=== PATIENT | male | born 1960 | race Asian ===

== ENCOUNTER 2020-02-12 14:57 | Inpatient (IN) | payer OTHER ==
[~2020-02-12] VITALS: Ht 175.3 cm; Wt 78.2 kg
[~2020-02-12 14:57] MED LIST: AMLO-257 PO; CLOP75TA3 PO; SIMV-261 PO; TELM40 PO
[2020-02-12] MEDS ORDERED: HYDR500 PO (15:08)
[2020-02-12] MEDS ORDERED: SIMV-259 PO (15:08)
[2020-02-12] MEDS ORDERED: METF-960 PO (15:08)
[2020-02-12] MEDS ORDERED: ACETAMINOPHEN 325 MG TABLET PO ONE (16:15)
[2020-02-12 17:10] LABS: EOSINOPHILS % (AUTO) 0.1 % (1.0-6.0); HEMOGLOBIN 13.2 g/dL (13.5-17.5); LYMPHOCYTES # (AUTO) 0.6 K/uL (1.0-4.8); MONOCYTES # (AUTO) 0.5 K/uL (0.1-1.0); NEUTROPHILS # (AUTO) 2.1 K/uL (1.8-7.7)
[2020-02-12 17:15] LABS: BASOPHILS % (AUTO) 0.4 % (0.0-2.0); HEMATOCRIT 40.3 % (41-53); LYMPHOCYTES % (AUTO) 19.2 % (22.0-44.0); MEAN CORPUSCULAR HEMOGLOBIN 34.5 pg (26.0-34.0); MEAN CORPUSCULAR HGB CONC 32.6 G/dL (31.0-37.0); MEAN CORPUSCULAR VOLUME 106 fL (80-100); MONOCYTES % (AUTO) 15.3 % (2.0-9.0); PLATELET COUNT (AUTO) 454 K/uL (150-450); RED BLOOD CELL COUNT(AUTO) 3.82 MIL/uL (4.50-5.90); RED CELL DISTRIBUTION WIDTH 12.8 % (11.5-14.5)
[2020-02-12 17:20] LABS: ANION GAP 6 mmol/L (8-16); CALCIUM, TOTAL 8.4 mg/dL (8.8-10.5); CARBON DIOXIDE 29 mmol/L (22-29); CHLORIDE 100 mmol/L (98-107); GLOMERULAR FILTR. RATE CALC > 60 mL/min (>60); GLUCOSE,RANDOM 113 mg/dL (70-110); POTASSIUM 4.2 mmol/L (3.5-5.1); SODIUM SERUM 135 mmol/L (136-145); UREA NITROGEN, BLOOD 10 mg/dL (7-18)
[2020-02-12 17:25] LABS: ALANINE AMINOTRANSFERASE 35 U/L (12-78); ALBUMIN 3.8 g/dL (3.4-5.0); ALKALINE PHOSPHATASE 51 U/L (46-116); ASPARTATE AMINOTRANSFERASE 27 U/L (15-37); BILIRUBIN,TOTAL 0.5 mg/dL (0.1-1.0); TOTAL PROTEIN, SERUM 8.1 g/dL (6.4-8.2)
[2020-02-12 17:43] LABS: B-TYPE NATRIURETIC PEPTIDE < 5 pg/mL (0-100)
[2020-02-12] MEDS ORDERED: IBUPROFEN 400 MG TABLET PO ONE (18:15)
[2020-02-12] MEDS ORDERED: ACETAMINOPHEN 325 MG TABLET PO PRN (19:00)
[2020-02-12] MEDS ORDERED: 0.9% SODIUM CHLORIDE 10 ML SYRINGE IVP PRN (19:00)
[2020-02-12] MEDS ORDERED: AZITHROMYCIN 500 MG TABLET PO ONE (19:00)
[2020-02-12] MEDS ORDERED: ONDANSETRON HCL 4 MG/2 ML VIAL IVP PRN ×2 (19:00→22:00)
[2020-02-12] MEDS ORDERED: CefTRIAXone 1 GM/DEXTROSE 50 ML IV ONE (19:00)
[2020-02-12] MEDS ORDERED: MAGNESIUM HYDROXIDE SUSPENSION 30 ML UDCUP PO PRN (22:00)
[2020-02-12] MEDS ORDERED: AZITHROMYCIN 500 MG/NS 250 ML IV SCH (22:00)
[2020-02-12] MEDS ORDERED: BISACODYL 10 MG RECTAL RECTAL SUPPOSITORY PR PRN (22:00)
[2020-02-12] MEDS ORDERED: DEXTROSE 50%-WATER 25 GM/50 ML SYRINGE IVP PRN (22:15)
[2020-02-12] MEDS ORDERED: INSULIN LISPRO 100 UNITS/ML SQ PRN (22:15)
[2020-02-12] MEDS ORDERED: REMDESIVIR **INVESTIGATIONAL** 200 MG in SODIUM CHLORIDE 0.9% 210 ML IV ONE (23:00)
[2020-02-13 00:05] VITALS: BP 129/73
[2020-02-13] MEDS ORDERED: SODIUM CHLORIDE 0.9% 100 ML ONE (00:06)
[2020-02-13 00:10] LABS: C-REACTIVE PROTEIN QUANT 2.26 mg/dL (0.00-0.30); FERRITIN 793 ng/mL (26-388)
[2020-02-13 03:07] LABS: APPEARANCE,URINE CLEAR (CLEAR); BILIRUBIN,URINE NEGATIVE (NEGATIVE); GLUCOSE, URINE (UA) NEGATIVE (NEGATIVE); KETONES,URINE NEGATIVE (NEGATIVE); LEUKOCYTE ESTERASE ,URINE NEGATIVE (NEGATIVE); NITRATE,URINE NEGATIVE (NEGATIVE); OCCULT BLOOD,URINE NEGATIVE (NEGATIVE); PROTEIN,URINE POS 1+ (NEGATIVE); UROBILINOGEN,URINE 0.2 mg/dL (<=1.0)
[2020-02-13 05:05] VITALS: BP 125/70
[2020-02-13 07:06] LABS: BASOPHILS % (AUTO) 0.4 % (0.0-2.0); EOSINOPHILS % (AUTO) 0.1 % (1.0-6.0); HEMATOCRIT 36.3 % (41-53); HEMOGLOBIN 12.4 g/dL (13.5-17.5); LYMPHOCYTES # (AUTO) 0.5 K/uL (1.0-4.8); LYMPHOCYTES % (AUTO) 18.5 % (22.0-44.0); MEAN CORPUSCULAR HEMOGLOBIN 35.8 pg (26.0-34.0); MEAN CORPUSCULAR HGB CONC 34.2 G/dL (31.0-37.0); MEAN CORPUSCULAR VOLUME 105 fL (80-100); MONOCYTES # (AUTO) 0.3 K/uL (0.1-1.0); PLATELET COUNT (AUTO) 433 K/uL (150-450); RED BLOOD CELL COUNT(AUTO) 3.46 MIL/uL (4.50-5.90); RED CELL DISTRIBUTION WIDTH 12.8 % (11.5-14.5)
[2020-02-13 07:48] LABS: GLUCOMETER DEV NAME(LOC) 5S.1; GLUCOSE,POINT OF CARE 128 MG/DL (70-110)
[2020-02-13 07:58] LABS: ALANINE AMINOTRANSFERASE 32 U/L (12-78); ALBUMIN 3.4 g/dL (3.4-5.0); ALKALINE PHOSPHATASE 52 U/L (46-116); ANION GAP 12 mmol/L (8-16); ASPARTATE AMINOTRANSFERASE 26 U/L (15-37); BILIRUBIN,TOTAL 0.3 mg/dL (0.1-1.0); C-REACTIVE PROTEIN QUANT 2.76 mg/dL (0.00-0.30); CALCIUM, TOTAL 8.1 mg/dL (8.8-10.5); CARBON DIOXIDE 25 mmol/L (22-29); CHLORIDE 99 mmol/L (98-107); CHOL/HDL RATIO 3.1 (4.2-7.3); CHOLESTEROL 100 mg/dL (131-200); CREATINE KINASE, TOTAL ONLY 206 U/L (39-308); CREATININE 0.94 mg/dL (0.60-1.30); FERRITIN 730 ng/mL (26-388); FREE T4 (FREE THYROXINE) 0.87 ng/dL (0.76-1.46); GLOMERULAR FILTR. RATE CALC > 60 mL/min (>60); GLUCOSE,RANDOM 124 mg/dL (70-110); HDL CHOLESTEROL 32 mg/dL (40-60); LACTATE DEHYDROGENASE 233 U/L (85-227); LDL CHOL (CALC.) 57 mg/dL (0-130); POTASSIUM 3.9 mmol/L (3.5-5.1); SODIUM SERUM 136 mmol/L (136-145); THYROID STIMULATING HORMONE 3.08 uIU/mL (0.36-3.74); TOTAL PROTEIN, SERUM 7.5 g/dL (6.4-8.2); TRIGLYCERIDES 55 mg/dL (15-150); UREA NITROGEN, BLOOD 12 mg/dL (7-18)
[2020-02-13 08:15] LABS: HEMOGLOBIN A1C 6.1 % (3.8-5.6)
[2020-02-13 08:30] VITALS: BP 149/81
[2020-02-13] MEDS: TELMISARTAN 40 MG TABLET PO SCH (08:30)
[2020-02-13] MEDS: CLOPIDOGREL BISULFATE 75 MG TABLET PO SCH (08:30)
[2020-02-13] MEDS: MetFORMIN HCL 500 MG TABLET PO SCH (08:30)
[2020-02-13] MEDS: ACETAMINOPHEN 325 MG TABLET PO PRN ×3 (08:30→21:51)
[2020-02-13] MEDS: HYDROXYUREA 500 MG CAPSULE PO SCH (08:30)
[2020-02-13] MEDS ORDERED: HYDROXYUREA 500 MG CAPSULE PO SCH (09:00)
[2020-02-13] MEDS ORDERED: TELMISARTAN 40 MG TABLET PO SCH (09:00)
[2020-02-13 11:20] VITALS: BP 129/68
[2020-02-13 15:07] VITALS: BP 151/72
[2020-02-13] MEDS ORDERED: DEXAMETHASONE SOD PHOS 4 MG/ML VIAL IVP SCH (17:00)
[2020-02-13 19:48] VITALS: BP 131/78
[2020-02-13] MEDS: SIMVASTATIN 40 MG TABLET PO SCH (20:26)
[2020-02-13] MEDS: CefTRIAXone 1 GM/DEXTROSE 50 ML IV SCH (20:26)
[2020-02-13] MEDS ORDERED: SIMVASTATIN 40 MG TABLET PO SCH (21:00)
[2020-02-13] MEDS: AZITHROMYCIN 500 MG/NS 250 ML IV SCH (21:51)
[2020-02-13] MEDS: REMDESIVIR **INVESTIGATIONAL** 100 MG in SODIUM CHLORIDE 0.9% 230 ML IV SCH (23:10)
[2020-02-14] VITALS (7 sets, daily range): BP systolic 111–138; BP diastolic 66–82
[2020-02-14] MEDS: ACETAMINOPHEN 325 MG TABLET PO PRN ×3 (05:55→21:38)
[2020-02-14 06:56] LABS: ALANINE AMINOTRANSFERASE 35 U/L (12-78); ALBUMIN 3.4 g/dL (3.4-5.0); ALKALINE PHOSPHATASE 48 U/L (46-116); ANION GAP 7 mmol/L (8-16); ASPARTATE AMINOTRANSFERASE 27 U/L (15-37); BILIRUBIN,TOTAL 0.4 mg/dL (0.1-1.0); CALCIUM, TOTAL 8.1 mg/dL (8.8-10.5); CARBON DIOXIDE 27 mmol/L (22-29); CHLORIDE 96 mmol/L (98-107); CREATININE 0.78 mg/dL (0.60-1.30); GLOMERULAR FILTR. RATE CALC > 60 mL/min (>60); GLUCOSE,RANDOM 120 mg/dL (70-110); POTASSIUM 3.8 mmol/L (3.5-5.1); SODIUM SERUM 130 mmol/L (136-145); TOTAL PROTEIN, SERUM 7.7 g/dL (6.4-8.2); UREA NITROGEN, BLOOD 11 mg/dL (7-18)
[2020-02-14 08:08] LABS: BASOPHILS % (AUTO) 0.4 % (0.0-2.0); EOSINOPHILS % (AUTO) 0.1 % (1.0-6.0); HEMATOCRIT 37.4 % (41-53); HEMOGLOBIN 12.9 g/dL (13.5-17.5); LYMPHOCYTES # (AUTO) 0.7 K/uL (1.0-4.8); LYMPHOCYTES % (AUTO) 22.4 % (22.0-44.0); MEAN CORPUSCULAR HEMOGLOBIN 35.9 pg (26.0-34.0); MEAN CORPUSCULAR HGB CONC 34.4 G/dL (31.0-37.0); MEAN CORPUSCULAR VOLUME 104 fL (80-100); MONOCYTES # (AUTO) 0.3 K/uL (0.1-1.0); MONOCYTES % (AUTO) 10.1 % (2.0-9.0); PLATELET COUNT (AUTO) 406 K/uL (150-450); RED BLOOD CELL COUNT(AUTO) 3.59 MIL/uL (4.50-5.90); RED CELL DISTRIBUTION WIDTH 12.8 % (11.5-14.5)
[2020-02-14] MEDS: MetFORMIN HCL 500 MG TABLET PO SCH (08:45)
[2020-02-14] MEDS: CLOPIDOGREL BISULFATE 75 MG TABLET PO SCH (08:45)
[2020-02-14] MEDS: HYDROXYUREA 500 MG CAPSULE PO SCH (08:45)
[2020-02-14] MEDS: TELMISARTAN 40 MG TABLET PO SCH (08:45)
[2020-02-14 14:29] LABS: C-REACTIVE PROTEIN QUANT 3.03 mg/dL (0.00-0.30); FERRITIN 953 ng/mL (26-388); LACTATE DEHYDROGENASE 477 U/L (85-227)
[2020-02-14 16:25] LABS: GLUCOMETER DEV NAME(LOC) 5N.3; GLUCOSE,POINT OF CARE 114 MG/DL (70-110)
[2020-02-14] MEDS: SIMVASTATIN 40 MG TABLET PO SCH (20:16)
[2020-02-14] MEDS: CefTRIAXone 1 GM/DEXTROSE 50 ML IV SCH (20:16)
[2020-02-14] MEDS: AZITHROMYCIN 500 MG/NS 250 ML IV SCH (21:37)
[2020-02-14 22:55] LABS: GLUCOMETER DEV NAME(LOC) 5S.1; GLUCOSE,POINT OF CARE 121 MG/DL (70-110)
[2020-02-14] MEDS: REMDESIVIR **INVESTIGATIONAL** 100 MG in SODIUM CHLORIDE 0.9% 230 ML IV SCH (23:13)
[2020-02-15 04:58] VITALS: BP 133/78
[2020-02-15 06:40] LABS: BASOPHILS % (AUTO) 0.4 % (0.0-2.0); EOSINOPHILS % (AUTO) 0.2 % (1.0-6.0); HEMATOCRIT 37.1 % (41-53); HEMOGLOBIN 12.9 g/dL (13.5-17.5); LYMPHOCYTES # (AUTO) 0.8 K/uL (1.0-4.8); LYMPHOCYTES % (AUTO) 22.8 % (22.0-44.0); MEAN CORPUSCULAR HGB CONC 34.8 G/dL (31.0-37.0); MEAN CORPUSCULAR VOLUME 103 fL (80-100); MONOCYTES # (AUTO) 0.5 K/uL (0.1-1.0); MONOCYTES % (AUTO) 13.9 % (2.0-9.0); NEUTROPHILS # (AUTO) 2.2 K/uL (1.8-7.7); NEUTROPHILS % (AUTO) 62.7 % (40.0-70.0); PLATELET COUNT (AUTO) 401 K/uL (150-450); RED BLOOD CELL COUNT(AUTO) 3.59 MIL/uL (4.50-5.90); RED CELL DISTRIBUTION WIDTH 12.7 % (11.5-14.5)
[2020-02-15 07:47] LABS: GLUCOMETER DEV NAME(LOC) 5N.1; GLUCOSE,POINT OF CARE 119 MG/DL (70-110)
[2020-02-15 07:49] LABS: ALANINE AMINOTRANSFERASE 31 U/L (12-78); ALBUMIN 3.3 g/dL (3.4-5.0); ALKALINE PHOSPHATASE 54 U/L (46-116); ANION GAP 7 mmol/L (8-16); ASPARTATE AMINOTRANSFERASE 25 U/L (15-37); BILIRUBIN,TOTAL 0.3 mg/dL (0.1-1.0); C-REACTIVE PROTEIN QUANT 2.58 mg/dL (0.00-0.30); CALCIUM, TOTAL 8.5 mg/dL (8.8-10.5); CARBON DIOXIDE 27 mmol/L (22-29); CHLORIDE 100 mmol/L (98-107); CREATININE 0.89 mg/dL (0.60-1.30); FERRITIN 1256 ng/mL (26-388); GLOMERULAR FILTR. RATE CALC > 60 mL/min (>60); GLUCOSE,RANDOM 115 mg/dL (70-110); POTASSIUM 4.3 mmol/L (3.5-5.1); SODIUM SERUM 134 mmol/L (136-145); TOTAL PROTEIN, SERUM 7.4 g/dL (6.4-8.2); UREA NITROGEN, BLOOD 12 mg/dL (7-18)
[2020-02-15] MEDS: TELMISARTAN 40 MG TABLET PO SCH (08:09)
[2020-02-15] MEDS: CLOPIDOGREL BISULFATE 75 MG TABLET PO SCH (08:09)
[2020-02-15] MEDS: HYDROXYUREA 500 MG CAPSULE PO SCH (08:09)
[2020-02-15] MEDS: MetFORMIN HCL 500 MG TABLET PO SCH (08:09)
[2020-02-15 08:40] VITALS: BP 115/68
[2020-02-15 12:05] VITALS: BP 121/61
[2020-02-15 14:59] LABS: GLUCOMETER DEV NAME(LOC) 5N.3; GLUCOSE,POINT OF CARE 116 MG/DL (70-110)
[2020-02-15 16:31] VITALS: BP 128/74
[2020-02-15] MEDS: SIMVASTATIN 40 MG TABLET PO SCH (20:14)
[2020-02-15 21:06] VITALS: BP 117/64
[2020-02-15] MEDS ORDERED: SODIUM CHLORIDE 0.9% 250 ML IV ONE (21:36)
[2020-02-15] MEDS: REMDESIVIR **INVESTIGATIONAL** 100 MG in SODIUM CHLORIDE 0.9% 230 ML IV SCH (23:01)
[2020-02-16 00:24] VITALS: BP 102/53
[2020-02-16 01:08] LABS: GLUCOMETER DEV NAME(LOC) 5S.1; GLUCOSE,POINT OF CARE 136 MG/DL (70-110)
[2020-02-16] MEDS: ACETAMINOPHEN 325 MG TABLET PO PRN (03:09)
[2020-02-16 06:02] VITALS: BP 123/65
[2020-02-16 06:18] LABS: GLUCOMETER DEV NAME(LOC) 5S.1; GLUCOSE,POINT OF CARE 116 MG/DL (70-110)
[2020-02-16 07:49] VITALS: BP 104/63
[2020-02-16 08:05] LABS: ALANINE AMINOTRANSFERASE 44 U/L (12-78); ALBUMIN 3.2 g/dL (3.4-5.0); ALKALINE PHOSPHATASE 57 U/L (46-116); ANION GAP 8 mmol/L (8-16); ASPARTATE AMINOTRANSFERASE 32 U/L (15-37); BILIRUBIN,TOTAL 0.4 mg/dL (0.1-1.0); C-REACTIVE PROTEIN QUANT 2.19 mg/dL (0.00-0.30); CALCIUM, TOTAL 8.7 mg/dL (8.8-10.5); CARBON DIOXIDE 27 mmol/L (22-29); CHLORIDE 99 mmol/L (98-107); CREATININE 0.88 mg/dL (0.60-1.30); FERRITIN 1327 ng/mL (26-388); GLOMERULAR FILTR. RATE CALC > 60 mL/min (>60); GLUCOSE,RANDOM 111 mg/dL (70-110); LACTATE DEHYDROGENASE 259 U/L (85-227); POTASSIUM 4.2 mmol/L (3.5-5.1); SODIUM SERUM 134 mmol/L (136-145); TOTAL PROTEIN, SERUM 7.3 g/dL (6.4-8.2); UREA NITROGEN, BLOOD 12 mg/dL (7-18)
[2020-02-16] MEDS: MetFORMIN HCL 500 MG TABLET PO SCH (08:52)
[2020-02-16] MEDS: TELMISARTAN 40 MG TABLET PO SCH (08:52)
[2020-02-16] MEDS: HYDROXYUREA 500 MG CAPSULE PO SCH (08:52)
[2020-02-16] MEDS: CLOPIDOGREL BISULFATE 75 MG TABLET PO SCH (08:52)
[2020-02-16 11:35] VITALS: BP 111/68
[2020-02-16 12:21] LABS: LEGIONELLA PNEUMO AG URINE Negative (Negative)
[2020-02-16 13:12] LABS: ORGANISM ID Not indicated.; S PNEUMO SOURCE Urine; STREP PNEUMONIAE AG URINE Negative (Negative); STREP.PNEUMO BODY FLUID CULT. Not indicated.
[2020-02-16 16:25] VITALS: BP 114/72
[2020-02-16] MEDS: SIMVASTATIN 40 MG TABLET PO SCH (20:15)
[2020-02-16 21:06] VITALS: BP 128/80
[2020-02-16] MEDS: REMDESIVIR **INVESTIGATIONAL** 100 MG in SODIUM CHLORIDE 0.9% 230 ML IV SCH (22:38)
[2020-02-16 23:05] LABS: GLUCOMETER DEV NAME(LOC) 5S.1; GLUCOSE,POINT OF CARE 128 MG/DL (70-110)
[2020-02-17 00:10] VITALS: BP 111/64
[2020-02-17 04:12] VITALS: BP 120/74
[2020-02-17 06:33] LABS: GLUCOMETER DEV NAME(LOC) 5S.1; GLUCOSE,POINT OF CARE 132 MG/DL (70-110)
[2020-02-17 07:58] VITALS: BP 107/62
[2020-02-17 08:08] LABS: ALANINE AMINOTRANSFERASE 58 U/L (12-78); ALBUMIN 3.4 g/dL (3.4-5.0); ALKALINE PHOSPHATASE 65 U/L (46-116); ANION GAP 5 mmol/L (8-16); ASPARTATE AMINOTRANSFERASE 36 U/L (15-37); BILIRUBIN,TOTAL 0.5 mg/dL (0.1-1.0); C-REACTIVE PROTEIN QUANT 2.25 mg/dL (0.00-0.30); CALCIUM, TOTAL 8.5 mg/dL (8.8-10.5); CARBON DIOXIDE 30 mmol/L (22-29); CHLORIDE 100 mmol/L (98-107); FERRITIN 1312 ng/mL (26-388); GLOMERULAR FILTR. RATE CALC > 60 mL/min (>60); GLUCOSE,RANDOM 111 mg/dL (70-110); POTASSIUM 5.3 mmol/L (3.5-5.1); SODIUM SERUM 135 mmol/L (136-145); TOTAL PROTEIN, SERUM 6.9 g/dL (6.4-8.2); UREA NITROGEN, BLOOD 13 mg/dL (7-18)
[2020-02-17] MEDS: TELMISARTAN 40 MG TABLET PO SCH (08:25)
[2020-02-17] MEDS: CLOPIDOGREL BISULFATE 75 MG TABLET PO SCH (08:25)
[2020-02-17] MEDS: HYDROXYUREA 500 MG CAPSULE PO SCH (08:25)
[2020-02-17] MEDS: MetFORMIN HCL 500 MG TABLET PO SCH (08:26)
[2020-02-17 11:12] VITALS: BP 112/61
== END 2020-02-17 14:00 | disposition home or self-care (01) | DRG 871 ==
LOC: EMS 15:09 → AHU 21:56 → UNDOADMIN 22:01 → 5N 23:14
PROVIDERS: ADMIT Internal Medicine Geriatric Medicine; ATTEND Internal Medicine Geriatric Medicine
DX: A41.89 Other specified sepsis (principal); U07.1 COVID-19; J12.89 Other viral pneumonia; E11.9 Type 2 diabetes mellitus without complications; E78.5 Hyperlipidemia, unspecified; D47.3 Essential (hemorrhagic) thrombocythemia; G47.33 Obstructive sleep apnea (adult) (pediatric); I10 Essential (primary) hypertension; D72.810 Lymphocytopenia; Z86.73 Personal history of transient ischemic attack (TIA), and cerebral infarction without residual deficits; Z87.891 Personal history of nicotine dependence; Z82.49 Family history of ischemic heart disease and other diseases of the circulatory system
CPT/HCPCS: 82728; 83036; 83520; 83615; 83735; 84145; 84439; 84443; 85379; 86140; 87040; 87449; 87899; 93005; 93306; J0456; J0696; J7050; 36415-L1; 36415-TC; 71045-TC; 80061-TC; 81003-TC

== ENCOUNTER → 2020-07-11 | Outpatient (CLI) | payer OTHER ==
[~2020-07-11] MED LIST changes: +CLOP-31 PO; -CLOP75TA3 PO; +HYDR500 PO; +METF-960 PO
== END | disposition home or self-care (01) ==
LOC: RADPV 09:33
PROVIDERS: ATTEND Internal Medicine Geriatric Medicine
DX: M17.0 Bilateral primary osteoarthritis of knee (principal)
CPT/HCPCS: 73562-TC

== ENCOUNTER → 2021-07-01 | Outpatient (CLI) | payer OTHER ==
[~2021-07-01] MED LIST changes: -CLOP-31 PO; +CLOP75TA60 PO; +METF-1211 PO; -METF-960 PO
== END | disposition home or self-care (01) ==
LOC: RADPV 08:18
PROVIDERS: ATTEND Internal Medicine Geriatric Medicine
DX: R13.12 Dysphagia, oropharyngeal phase (principal)
CPT/HCPCS: 74220